=== PATIENT | female | born 1940 | race Caucasian/White ===

== ENCOUNTER 2016-10-06 07:56 | Day surgery (SDC) | payer MEDICARE ==
[~2016-10-06 07:56] MED LIST: Acetaminophen TAB* 325 MG PO PRN; Buffered Lidocaine 1% SYRIN* 5 ML/SYR SYRINGE INTRADERM ONE
[2016-10-06] MEDS ORDERED: Midazolam* 1 MG/ML 2 ML VIAL (2 MG) ONE (09:02)
[2016-10-06] MEDS ORDERED: fentaNYL* 50 MCG/ML 2 ML VIAL (100 MCG VIAL) ONE (09:09)
[2016-10-06 09:57] VITALS: BP 142/73
[2016-10-06] MEDS ORDERED: Phenylephrine 2.5% OPTH.SOL* 2 ML BTL ONE (14:45)
[2016-10-06] MEDS ORDERED: Povidone Iodine 5% OPTH* 30 ML BTL ONE (14:45)
[2016-10-06] MEDS ORDERED: Flurbiprofen 0.03% OPTH.SOL* 2.5 ML BTL ONE (14:45)
[2016-10-06] MEDS ORDERED: Cyclopentolate 1% OPTH.SOL* 2 ML BTL ONE (14:45)
[2016-10-06] MEDS ORDERED: Neomycin/Polymy/Dex OPHTH.OIN* 3.5 GM ONE (14:45)
[2016-10-06] MEDS ORDERED: acetaZOLAMIDE TAB* 250 MG ONE (14:45)
[2016-10-06] MEDS ORDERED: Tetracaine 0.5% OPTH.SOL 4 ML* 1 DROP BTL ONE (14:45)
[2016-10-06] MEDS ORDERED: Tropicamide 1% OPTH.SOL* BTL ONE (14:45)
[2016-10-06] MEDS ORDERED: Lidocaine 1% MPF* 2 ML VIAL ONE (14:45)
--- NOTE | 2016-10-07 05:40 | OP ---
DATE OF OPERATION: 10/06/16 - [facility] [facility] DATE OF : 40 SURGEON: Molina Meneses MD ANESTHESIOLOGIST: Salvador Vyas MD ANESTHESIA: Monitored anesthesia care. PRE-OP DIAGNOSIS: Cataract of the right eye. POST-OP DIAGNOSIS: Cataract of the right eye. OPERATIVE PROCEDURE: Cataract surgery of the right eye. IMPLANTS: SN60WF 21.0 diopter lens to the right eye. COMPLICATIONS: None. DESCRIPTION OF PROCEDURE: The patient was given phenylephrine 2.5% and cyclopentolate 1% eye drops to the operative eye in the preoperative area. The patient was brought to the operating room, where a time-out was taken to identify the correct patient, site, and side of surgery. The patient's right eye was prepped and draped in the usual sterile fashion with 5% Betadine. A second time-out was taken to verify the correct patient, site, and side of surgery and correct lens selection. A lid speculum was placed to the right eye. A 1-mm paracentesis blade was used to make a clear corneal incision in the superotemporal position. Preservative-free 1% lidocaine was injected into the anterior chamber. DisCoVisc was then injected in the anterior chamber. A 2.75- mm keratome blade was used to make a triplanar incision at the inferotemporal position. A cystotome was used to initiate a capsulorrhexis, which was completed with Utrata forceps in a continuous and curvilinear manner. Hydrodissection of the lens was performed with BSS on a cannula. The lens could be spun in the capsular bag. The phacoemulsification handpiece was used with a jmffof-zeb-cifrieh technique to remove the nucleus in its entirety with 40.85 CDE. The I/A handpiece was used to remove the residual cortical lens material. DisCoVisc was injected to inflate the capsular bag. The planned SN60WF 21.0 diopter lens was injected into the capsular bag. The residual DisCoVisc was removed from the eye with the I/A handpiece. The corneal incisions were hydrated and no leaks occurred at physiologic pressure around 20 mmHg per palpation. The lip speculum was removed and drapes removed. Maxitrol ointment was placed to the surface of the operative eye. An adhesive patch and shield was placed in the operative eye. The patient was taken to the postoperative area in stable condition. [id number]/[facility] #: [id number] MTDLuis
== END 2016-10-06 09:53 | disposition home or self-care (01) ==
LOC: OREAST 07:56
PROVIDERS: ATTEND Student in an Organized Health Care Education/Training Program
DX: H25.12 Age-related nuclear cataract, left eye (principal); E11.3213 Type 2 diabetes mellitus with mild nonproliferative diabetic retinopathy with macular edema, bilateral; I10 Essential (primary) hypertension
CPT/HCPCS: A9270-GY; J2250; J3010; V2632

== ENCOUNTER 2017-11-09 09:04 | Day surgery (SDC) | payer MEDICARE ==
[~2017-11-09 09:04] MED LIST changes: +Buffered Lidocaine 0.9% SYRIN* 5 ML/SYR SYRINGE INTRADERM ONE; -Buffered Lidocaine 1% SYRIN* 5 ML/SYR SYRINGE INTRADERM ONE
[2017-11-09] MEDS ORDERED: fentaNYL* 50 MCG/ML 2 ML VIAL (100 MCG VIAL) ONE (10:20)
[2017-11-09] MEDS ORDERED: Midazolam* 1 MG/ML 2 ML VIAL (2 MG) ONE (10:21)
[2017-11-09] MEDS ORDERED: Trypan Blue 0.06% SOL* 0.5 ML BTL ONE (10:56)
[2017-11-09 11:33] VITALS: BP 134/76
[2017-11-09] MEDS ORDERED: Neomycin/Polymy/Dex OPHTH.OIN* 3.5 GM ONE (14:18)
[2017-11-09] MEDS ORDERED: acetaZOLAMIDE TAB* 250 MG ONE (14:18)
[2017-11-09] MEDS ORDERED: Cyclopentolate 1% OPTH.SOL* 2 ML BTL ONE (14:18)
[2017-11-09] MEDS ORDERED: Tropicamide 1% OPTH.SOL* BTL ONE (14:18)
[2017-11-09] MEDS ORDERED: Tetracaine 0.5% OPTH.SOL 4 ML* 1 DROP BTL ONE (14:18)
[2017-11-09] MEDS ORDERED: Lidocaine 1%* 5 ML VIAL ONE (14:18)
[2017-11-09] MEDS ORDERED: Povidone Iodine 5% OPTH* 30 ML BTL ONE (14:18)
[2017-11-09] MEDS ORDERED: Phenylephrine 2.5% OPTH.SOL* 2 ML BTL ONE (14:18)
[2017-11-09] MEDS ORDERED: Ketorolac 0.5% OPHTH (NF) 0.5 % 5 ML BTL ONE (14:18)
--- NOTE | 2017-11-10 06:37 | OP ---
DATE OF OPERATION: 11/09/17 - [facility] DATE OF : 40. SURGEON: Molina Meneses MD. ANESTHESIA: Monitored anesthesia care. PRE-OP DIAGNOSIS: Mature cataract, left eye. POST-OP DIAGNOSIS: Mature cataract, left eye. OPERATIVE PROCEDURE: Extracapsular cataract extraction of the left eye with intraocular lens implant. IMPLANTS: SN60WF 20.5 diopter lens to the left eye. COMPLICATIONS: None. DESCRIPTION OF PROCEDURE: The patient was given phenylephrine 2.5% and cyclopentolate 1% eye drops to the operative eye in the preoperative area. The patient was taken to the operating room where a time-out was taken to identify the correct patient, site, and side of the surgery. The patient's left eye was prepped and draped in the usual sterile fashion with 5% Betadine. A second time -out was taken to verify the correct patient, site and side of the surgery and correct lens implant. A lid speculum was placed to the left eye. A 1-mm paracentesis blade was used to make a clear corneal incision in the inferotemporal position. Preservative-free 1% lidocaine was injected in the anterior chamber. Vision Blue was then injected in the anterior chamber to stain the anterior capsule due to the poor red reflex. DisCoVisc was then injected in the anterior chamber. A 2.75-mm keratome blade was used to make a triplanar incision at the superotemporal position. A cystotome initiated a capsulorrhexis. The rhexis propagated peripherally to the 3 o'clock position, but was able to be recovered and continued in a curvilinear fashion to 11 o' clock to where then it was able to pulled more centrally to complete the capsulorrhexis with Utrata forceps. Hydrodissection of the lens was performed with DisCoVisc along the anterior capsule edge. The phacoemulsification handpiece was used with a jbncun-rjx-hwleabi technique to remove the nucleus with 55.32 CDE. During removal, no posterior extent of the rhexis was observed indicating no posterior migration of the rhexis. The I/A handpiece then removed the residual cortical lens material. DisCoVisc was injected to inflate the capsular bag. The planned SN60WF 20.5 diopter lens was injected into the capsular bag with the haptics oriented along the visible rhexis edge. The residual DisCoVisc was removed from the eye with the I/A handpiece. The corneal incisions were hydrated and no leaks occurred at physiologic pressure around 20 mmHg per palpation. The lid speculum was removed and drapes removed. Maxitrol ointment was placed on the surface of the operative eye. An adhesive patch and shield were then placed on the operative eye. The patient was taken to the postoperative area in stable condition. [id number]/[facility] #: [id number] LORRAINE
== END 2017-11-09 11:38 | disposition home or self-care (01) ==
LOC: OREAST 09:04
PROVIDERS: ATTEND Student in an Organized Health Care Education/Training Program
DX: H25.12 Age-related nuclear cataract, left eye (principal); E11.3213 Type 2 diabetes mellitus with mild nonproliferative diabetic retinopathy with macular edema, bilateral; E11.36 Type 2 diabetes mellitus with diabetic cataract; I12.9 Hypertensive chronic kidney disease with stage 1 through stage 4 chronic kidney disease, or unspecified chronic kidney disease; E11.22 Type 2 diabetes mellitus with diabetic chronic kidney disease; N18.3 Chronic kidney disease, stage 3 (moderate)
CPT/HCPCS: A9270-GY; J2250; J3010; V2632